=== PATIENT | male | born 1990 | race Caucasian/White ===

== ENCOUNTER 2020-07-09 12:51 | Emergency (ER) | payer SELFPAY | END 2020-07-09 16:39 | disposition home or self-care (01) | LOC: ER1 12:51 | DX: R55 Syncope and collapse (principal); S02.841A Fracture of lateral orbital wall, right side, initial encounter for closed fracture; S01.111A Laceration without foreign body of right eyelid and periocular area, initial encounter; W19.XXXA Unspecified fall, initial encounter; Y92.69 Other specified industrial and construction area as the place of occurrence of the external cause; Y99.0 Civilian activity done for income or pay | CPT/HCPCS: 70450; 70486; 72125; 82962; 99284 ==